=== PATIENT | male | born 1970 | race Caucasian/White ===

== ENCOUNTER 2020-07-06 20:06 | Inpatient (IN) | payer SELFPAY ==
[~2020-07-06] VITALS: Ht 172.7 cm; Wt 80.8 kg
[2020-07-06 21:04] LABS: BASO # 0.1 x10^3/uL (0.0-0.2); BASO % 1 % (0-3); EOS # 0.1 x10^3/uL (0.0-0.7); EOS % 1 % (0-3); HEMATOCRIT 41.2 % (39.0-53.0); LYMPH # 2.1 x10^3/uL (1.0-4.8); LYMPH % 13 % (24-48); MEAN CORPUSCULAR HEMOGLOBIN 30 pg (25-35); MEAN CORPUSCULAR HGB CONC 34 g/dL (31-37); MEAN CORPUSCULAR VOLUME 89 fL (79-100); MONO # 1.6 x10^3/uL (0.0-1.1); MONO % 10 % (0-9); NEUT # 11.6 x10^3/uL (1.8-7.7); NEUT % 75 % (31-73); PLATELET COUNT 243 x10^3/uL (140-400); RED BLOOD COUNT 4.62 x10^6/uL (4.30-5.70); RED CELL DISTRIBUTION WIDTH 13.6 % (11.5-14.5); WHITE BLOOD COUNT 15.5 x10^3/uL (4.0-11.0)
[2020-07-06 21:11] LABS: CALCIUM 8.7 mg/dL (8.5-10.1); CREATININE 1.1 mg/dL (0.7-1.3); GFR 71.4; POTASSIUM 3.5 mmol/L (3.5-5.1)
[2020-07-06] MEDS ORDERED: IOHEXOL 300 MG/ML 100ML VIAL. IV ONE (21:30)
[2020-07-06] MEDS ORDERED: IV NORMAL SALINE 1000ML BAG 1,000 ML IV ONE (21:30)
[2020-07-06] MEDS ORDERED: ONDANSETRON PF 4 MG/2 ML VIAL. IV ONE (21:30)
[2020-07-06] MEDS ORDERED: fentaNYL PF VIAL 100 MCG/2 ML VIAL IV ONE (21:30)
[2020-07-06] MEDS ORDERED: CONTRAST GIVEN. MC PRN (21:30)
[2020-07-06] MEDS ORDERED: PIPERACILLIN/TAZOBACTAM 3.375 GM in IV NORMAL SALINE 50ML 50 ML IV ONE (22:00)
[2020-07-06] MEDS ORDERED: MORPHINE SULFATE 4 MG/ML VIAL. IV PRN (22:00)
[2020-07-06] MEDS ORDERED: ONDANSETRON PF 4 MG/2 ML VIAL. IV PRN (22:00)
--- NOTE | 2020-07-06 22:05 | RAD ---
PQRS Compliance Statement: One or more of the following individualized dose reduction techniques were utilized for this examinat ion: 1. Automated exposure control 2. Adjustment of the mA and/or kV according to patient size 3. Use of iterative reconstruction technique CT PELVIS W Clinical Indication: Reason: left perirectal abscess / Comparison: None. Technique: Helical CT imaging of the abdomen and pelvis is performed after 75 cc of Omnipaque 300 IV contrast. Oral contrast not administered. Findings: There is posterior perineal and midline left gluteal fluid collection measuring up to 5 cm AP by 2.3 cm transverse by approximately 9.3 cm craniocaudal. There is faint rim enhancement of the collection. There is moderate induration of the surrounding subcutaneous fat. There is induration of the midline right gluteal fat. The cephalad portion of the collection is near the tip of the coccyx. No bone ero oscar is identified. No bubbles of gas are seen in the fluid collection. No perirectal fluid collectio n is identified. There are mildly enlarged bilateral inguinal lymph nodes that may be reactive. There is no dilated small bowel. The appendix is normal. No colon wall thickening is identified. The urinary bladder is normal. The prostate and seminal vesicles are normal. There is no pelvic free flui d. Degenerative endplate spurring of the lower lumbar spine. The sacroiliac joints are partially fused. IMPRESSION: 1. There is posterior perineal and midline left gluteal fluid collection suggestive of abscess. Ther e is moderate induration of the surrounding subcutaneous fat. 2. Mildly enlarged bilateral inguinal lymph nodes may be reactive. Electronically signed by: Chapito Tony MD (07/06/2020 10:03 PM) [facility]
--- NOTE | 2020-07-06 22:06 | ED.ADGEN ---
Past Medical History Past Medical History: No Pertinent History Past Surgical History: Other Additional Past Surgical Histo: NECK SURGERY 2000 Smoking Status: Current Every Day Smoker Alcohol Use: Rarely Drug Use: None General Adult EDM: Chief Complaint: SKIN RASH/ABSCESS HPI: HPI: Patient is a 49 year old male who presents emergency department with complaints of pain in his left buttock for the last 3 days accompanied by hot flashes and chills. Patient states that he has not measured his fever but he has felt hot. He denies any abdominal pain, nausea, vomiting, diarrhea, shortness of breath, cough, sore throat, headache, or rash. Patient denies any itching, drainage, or bleeding from the affected area. He currently rates the pain a 8 out of 10 on the pain scale, he denies any alleviating factors, pain is worse if any pressure is applied to his buttock. Review of Systems: Review of Systems: Complete ROS is negative unless otherwise noted in HPI. Current Medications: Current Medications Medications (Trade) Dose Ordered Sig/Cisco Start Time Stop Time Status Last Admin Dose Admin Fentanyl Citrate (Fentanyl 2ml Vial) 50 mcg 1X ONCE 07/06/20 21:30 07/06/20 21:31 DC 07/06/20 21:57 50 MCG Info (CONTRAST GIVEN -- Rx MONITORING) 1 each PRN DAILY PRN 07/06/20 21:30 07/08/20 21:29 Iohexol (Omnipaque 300 Mg/ml) 75 ml 1X ONCE 07/06/20 21:30 07/06/20 21:31 DC 07/06/20 21:31 75 ML Morphine Sulfate (Morphine Sulfate) 4 mg PRN Q2HR PRN 07/06/20 22:00 07/07/20 21:59 Ondansetron HCl (Zofran) 4 mg PRN Q8HRS PRN 07/06/20 22:00 07/07/20 21:59 Piperacillin Sod/ Tazobactam Sod 3.375 gm/Sodium Chloride 50 ml @ 100 mls/hr 1X ONCE 07/06/20 22:00 07/06/20 22:29 Sodium Chloride 1,000 ml @ 125 mls/hr Q8H 07/06/20 22:00 07/07/20 21:59 Allergies: Allergies: Allergies Coded Allergies Type Severity Reaction Last Updated Verified No Known Drug Allergies 07/06/20 No Physical Exam: PE: See Above Constitutional: Well developed, well nourished, no acute distress, non-toxic appearance., appears uncomfortable [] HENT: Normocephalic, atraumatic, bilateral external ears normal, nose normal. [] Eyes: PERRLA, EOMI, conjunctiva normal, no discharge. [] Neck: Normal range of motion, no stridor. [] Cardiovascular:Heart rate regular rhythm Lungs & Thorax: Respirations even and unlabored, no retractions, no respiratory distress Abdomen: soft, no tenderness Skin: Warm, dry; the left buttock is erythemic, warm, and indurated medially, no fluctuance, no visible abscess. Suspect perirectal abscess Extremities: No cyanosis, ROM intact, no edema. [] Neurologic: Alert and oriented X 3, normal motor, normal sensory, no focal deficits noted. [] Psychologic: Affect normal, judgement normal, mood normal. [] Current Patient Data: Labs: Laboratory Tests Test 07/06/20 20:57 White Blood Count 15.5 x10^3/uL (4.0-11.0) H Red Blood Count 4.62 x10^6/uL (4.30-5.70) Hemoglobin 14.0 g/dL (13.0-17.5) Hematocrit 41.2 % (39.0-53.0) Mean Corpuscular Volume 89 fL (79-100) Mean Corpuscular Hemoglobin 30 pg (25-35) Mean Corpuscular Hemoglobin Concent 34 g/dL (31-37) Red Cell Distribution Width 13.6 % (11.5-14.5) Platelet Count 243 x10^3/uL (140-400) Neutrophils (%) (Auto) 75 % (31-73) H Lymphocytes (%) (Auto) 13 % (24-48) L Monocytes (%) (Auto) 10 % (0-9) H Eosinophils (%) (Auto) 1 % (0-3) Basophils (%) (Auto) 1 % (0-3) Neutrophils # (Auto) 11.6 x10^3/uL (1.8-7.7) H Lymphocytes # (Auto) 2.1 x10^3/uL (1.0-4.8) Monocytes # (Auto) 1.6 x10^3/uL (0.0-1.1) H Eosinophils # (Auto) 0.1 x10^3/uL (0.0-0.7) Basophils # (Auto) 0.1 x10^3/uL (0.0-0.2) Sodium Level 141 mmol/L (136-145) Potassium Level 3.5 mmol/L (3.5-5.1) Chloride Level 104 mmol/L (98-107) Carbon Dioxide Level 27 mmol/L (21-32) Anion Gap 10 (6-14) Blood Urea Nitrogen 10 mg/dL (8-26) Creatinine 1.1 mg/dL (0.7-1.3) Estimated GFR (Cockcroft-Gault) 71.4 Glucose Level 108 mg/dL (70-99) H Calcium Level 8.7 mg/dL (8.5-10.1) Laboratory Tests 07/06/20 20:57 Laboratory Tests 07/06/20 20:57 Vital Signs: Vital Signs Date Time Temp Pulse Resp B/P (MAP) Pulse Ox O2 Delivery O2 Flow Rate FiO2 07/06/20 20:35 98.5 92 18 143/70 (94) 96 Room Air 98.5 EKG: EKG: [] Heart Score: C/O Chest Pain: No Risk Scores: Score 0 - 3: 2.5% MACE over next 6 weeks - Discharge Home Score 4 - 6: 20.3% MACE over next 6 weeks - Admit for Clinical Observation Score 7 - 10: 72.7% MACE over next 6 weeks - Early Invasive Strategies Radiology/Procedures: Radiology/Procedures: PROCEDURE: CT PELVIS W/CONTRAST PQRS Compliance Statement: One or more of the following individualized dose reduction techniques were utilized for this examination: 1. Automated exposure control 2. Adjustment of the mA and/or kV according to patient size 3. Use of iterative reconstruction technique CT PELVIS W Clinical Indication: Reason: left perirectal abscess / Comparison: None. Technique: Helical CT imaging of the abdomen and pelvis is performed after 75 cc of Omnipaque 300 IV contrast. Oral contrast not administered. Findings: There is posterior perineal and midline left gluteal fluid collection measuring up to 5 cm AP by 2.3 cm transverse by approximately 9.3 cm craniocaudal. There is faint rim enhancement of the collection. There is moderate induration of the surrounding subcutaneous fat. There is induration of the midline right gluteal fat. The cephalad portion of the collection is near the tip of the coccyx. No b one erosion is identified. No bubbles of gas are seen in the fluid collection. No perirectal fluid collection is identified. There are mildly enlarged bilateral inguinal lymph nodes that may be reactive. There is no dilated small bowel. The appendix is normal. No colon wall thickening is identified. The urinary bladder is normal. The prostate and seminal vesicles are normal. There is no pelvic free fluid. Degenerative endplate spurring of the lower lumbar spine. The sacroiliac joints are partially fused. IMPRESSION: 1. There is posterior perineal and midline left gluteal fluid collection s uggestive of abscess. There is moderate induration of the surrounding subcutaneous fat. 2. Mildly enlarged bilateral inguinal lymph nodes may be reactive. Electronically signed by: Chapito Tnoy MD (07/06/2020 10:03 PM) [facility] [] Course & Med Decision Making: Course & Med Decision Making Pertinent Labs and Imaging studies reviewed. (See chart for details) [id number]-spoke with Dr. Ibarra who is the admitting physician, and care was assumed following discussion of patient. Will admit patient for left perirectal abscess, advised that Dr. Soto has also been paged to inform the patient. Patient's vital signs stable.. Patient remains afebrile, appears nontoxic, respirations even and unlabored. Patient will be admitted to the medical/surgical floor. Patient's case and plan of care also discussed with Dr. Davey 2199- Dr. Soto notified of patient. Advised that order for NPO has already been initiated and patient has been given 3.375 g of Zosyn IV. [] Dragon Disclaimer: Dragon Disclaimer: This electronic medical record was generated, in whole or in part, using a voice recognition dictation system. Departure Departure Impression: Primary Impression: Mercedez-rectal abscess Disposition: ADMITTED INPATIENT Admitting Physician: GISELA Richey) Condition: STABLE Referrals: NO PCP (PCP) RICH GIANG [facility] July 06, 2020 22:06
[2020-07-06] MEDS ORDERED: PIP/TAZO PER PHARMACY MC PRN (22:15)
[2020-07-06] MEDS ORDERED: MORPHINE SULFATE 10 MG/ML VIAL. IV PRN (22:15)
[2020-07-06] MEDS ORDERED: MAG HYDROX/ALUMINUM HYD/SIMETH 30 ML ORAL.SUSP PO PRN (22:30)
[2020-07-06] MEDS ORDERED: ONDANSETRON PF 4 MG/2 ML VIAL. IVP PRN (22:30)
[2020-07-06] MEDS ORDERED: PROCHLORPERAZINE 10 MG/2 ML VIAL. IVP PRN (22:30)
[2020-07-06] MEDS ORDERED: ACETAMINOPHEN 325 MG TABLET. PO PRN (22:30)
[2020-07-06] MEDS ORDERED: MAGNESIUM HYDROXIDE 2,400 MG/30 ML ORAL.SUSP. PO PRN (22:30)
[2020-07-06] MEDS ORDERED: ZOLPIDEM 5 MG TABLET. PO PRN (22:30)
[2020-07-06] MEDS ORDERED: HYDROcodone/APAP 5/325MG 1 TAB TABLET PO PRN ×2 (22:30)
[2020-07-06] MEDS ORDERED: CALCIUM CARBONATE 500 MG TAB.CHEW PO PRN (22:30)
[2020-07-06 23:00] VITALS: BP 151/83
[2020-07-06] MEDS: IV NORMAL SALINE 1000ML BAG 1,000 ML IV SCH (23:11)
--- NOTE | 2020-07-07 01:21 | NUR ---
ADMIT NOTE: The patient, ISIAH ANGULO, 49 y/o, M admitted by HUBERT KEN MD, was given written information regarding hospital policies, unit procedures and contact persons. Patient orientated to unit, admit packed reviewed, and plan of care discussed. Admission wound photo complete. Patient's allergies and preferred pharmacy verified and pt reports no active home medications. Patient resting in bed, bed in lowest/locked position, and call light within reach; no other needs voiced at this time.
[2020-07-07 03:34] VITALS: BP 135/76
[2020-07-07] MEDS: HEPARIN for SUB-Q USE 5,000 UNIT/ML VIAL. SQ SCH ×2 (05:24→14:00)
[2020-07-07] MEDS: PIPERACILLIN/TAZOBACTAM 3.375 GM in IV NORMAL SALINE 50ML 50 ML IV SCH ×2 (05:24→11:51)
[2020-07-07] MEDS: IV NORMAL SALINE 1000ML BAG 1,000 ML IV SCH ×2 (05:26→14:00)
--- NOTE | 2020-07-07 05:26 | NUR ---
Heparin non-administered on eMAR d/t surgical consult and potential surgery.
[2020-07-07 06:50] LABS: BASO # 0.1 x10^3/uL (0.0-0.2); BASO % 1 % (0-3); EOS # 0.2 x10^3/uL (0.0-0.7); EOS % 1 % (0-3); HEMOGLOBIN 14.1 g/dL (13.0-17.5); LYMPH % 14 % (24-48); MEAN CORPUSCULAR HEMOGLOBIN 30 pg (25-35); MEAN CORPUSCULAR HGB CONC 34 g/dL (31-37); MEAN CORPUSCULAR VOLUME 90 fL (79-100); MONO # 1.6 x10^3/uL (0.0-1.1); MONO % 11 % (0-9); NEUT # 10.1 x10^3/uL (1.8-7.7); NEUT % 73 % (31-73); PLATELET COUNT 247 x10^3/uL (140-400); RED BLOOD COUNT 4.66 x10^6/uL (4.30-5.70); RED CELL DISTRIBUTION WIDTH 14.2 % (11.5-14.5); WHITE BLOOD COUNT 13.9 x10^3/uL (4.0-11.0)
[2020-07-07 07:00] VITALS: BP 142/82
[2020-07-07 07:11] LABS: CALCIUM 8.4 mg/dL (8.5-10.1); GFR 79.8; POTASSIUM 3.9 mmol/L (3.5-5.1)
--- NOTE | 2020-07-07 07:42 | PDOC1 ---
History and Physical Date of Admission Date of Admission DATE: 07/07/20 TIME: 07:34 Identification/Chief Complaint Chief Complaint Left buttock pain Source Source: Patient History of Present Illness History of Present Illness Mr Lazo is a 49 yo M with no significant PMHX who presents emergency department with complaints of pain in his left buttock for the last 4 days accompanied by subjective fever and chills. Has not been able to lay flat for 4 days. He denies any abdominal pain, nausea, vomiting, diarrhea, shortness of breath, cough, sore throat, headache, or rash. Patient denies any itching, drainage, or bleeding from the affected area. He currently rates the pain a 8 out of 10 on the pain scale, he denies any alleviating factors, pain is worse if any pressure is applied to his buttock. Heart rate 92 bpm Labs with WBC 15.5, Hb 14, platelets 243, NA 141, K3.5, BUN 10 CR 1.1, glucose 108. CT abdomen pelvis with left perineum posterior gluteal fluid collection consistent with abscess. General surgery was consulted started on IV Zosyn and admitted for further care Past Medical History Cardiovascular: No pertinent hx Past Surgical History Past Surgical History: Other (Neck surgery 2000) Family History Family History: High Cholestrol, Hypertension Social History Smoke: 1 pack per day ALCOHOL: rare Drugs: None Current Problem List Problem List Problems Medical Problems: (1) Mercedez-rectal abscess Status: Acute Current Medications Current Medications Current Medications Iohexol (Omnipaque 300 Mg/ml) 75 ml 1X ONCE IV Last administered on 07/06/20at 21:31; Start 07/06/20 at 21:30; Stop 07/06/20 at 21:31; Status DC Info (CONTRAST GIVEN -- Rx MONITORING) 1 each PRN DAILY PRN MC SEE COMMENTS; Start 07/06/20 at 21:30; Stop 07/08/20 at 21:29 Fentanyl Citrate (Fentanyl 2ml Vial) 50 mcg 1X ONCE IV Last administered on 07/06/20at 21:57; Start 07/06/20 at 21:30; Stop 07/06/20 at 21:31; Status DC Ondansetron HCl (Zofran) 4 mg 1X ONCE IV Last administered on 07/06/20at 21:57; Start 07/06/20 at 21:30; Stop 07/06/20 at 21:31; Status DC Sodium Chloride 1,000 ml @ 1,000 mls/hr 1X ONCE IV Last administered on 07/06/20at 21:47; Start 07/06/20 at 21:30; Stop 07/06/20 at 22:29; Status DC Piperacillin Sod/ Tazobactam Sod 3.375 gm/Sodium Chloride 50 ml @ 100 mls/hr 1X ONCE IV Last administered on 07/06/20at 22:55; Start 07/06/20 at 22:00; Stop 07/06/20 at 22:29; Status DC Ondansetron HCl (Zofran) 4 mg PRN Q8HRS PRN IV NAUSEA/VOMITING; Start 07/06/20 at 22:00; Stop 07/06/20 at 22:33; Status DC Morphine Sulfate (Morphine Sulfate) 4 mg PRN Q2HR PRN IV PAIN; Start 07/06/20 at 22:00; Stop 07/07/20 at 21:59 Sodium Chloride 1,000 ml @ 125 mls/hr Q8H IV Last administered on 07/07/20at 05:26; Start 07/06/20 at 22:00; Stop 07/07/20 at 21:59 Piperacillin Sod/ Tazobactam Sod (Zosyn Per Pharmacy) 1 each PRN DAILY PRN MC SEE COMMENTS; Start 07/06/20 at 22:15 Piperacillin Sod/ Tazobactam Sod 3.375 gm/Sodium Chloride 50 ml @ 100 mls/hr Q6HRS IV Last administered on 07/07/20at 05:24; Start 07/07/20 at 05:00 Morphine Sulfate (Morphine Sulfate) 5 mg PRN Q2HR PRN IV PAIN; Start 07/06/20 at 22:15 Ondansetron HCl (Zofran) 4 mg PRN Q6HRS PRN IVP NAUSEA/VOMITING 1ST CHOICE; Start 07/06/20 at 22:30 Prochlorperazine Edisylate (Compazine) 10 mg PRN Q6HRS PRN IVP NAUSEA/VOMITING 2ND CHOICE; Start 07/06/20 at 22:30 Al Hydroxide/Mg Hydroxide (Mylanta Plus Xs) 30 ml PRN Q3HRS PRN PO HEARTBURN / GAS; Start 07/06/20 at 22:30 Calcium Carbonate/ Glycine (Tums) 500 mg PRN Q3HRS PRN PO UPSET STOMACH; Start 07/06/20 at 22:30 Zolpidem Tartrate (Ambien) 5 mg PRN QHS PRN PO INSOMNIA, MAY REPEAT IN 1HR; Start 07/06/20 at 22:30 Acetaminophen/ Hydrocodone Bitart (Lortab 5/325) 1 tab PRN Q4HRS PRN PO MILD PAIN 1-3; Start 07/06/20 at 22:30 Acetaminophen/ Hydrocodone Bitart (Lortab 5/325) 2 tab PRN Q4HRS PRN PO MODERATE PAIN, SEVERE PAIN Last administered on 07/06/20at 23:35; Start 07/06/20 at 22:30 Acetaminophen (Tylenol) 650 mg PRN Q6HRS PRN PO Headaches, Temp > 101.5F; Start 07/06/20 at 22:30 Magnesium Hydroxide (Milk Of Magnesia) 2,400 mg PRN Q12HR PRN PO CONSTIPATION; Start 07/06/20 at 22:30 Heparin Sodium (Porcine) (Heparin Sodium) 5,000 unit Q8HRS SQ ; Start 07/07/20 at 06:00 Allergies Allergies: Coded Allergies: No Known Drug Allergies (Unverified , 07/06/20) Physical Exam General: Alert, Oriented X3, Cooperative, mild distress HEENT: Atraumatic, PERRLA, EOMI, Mucous membr. moist/pink Lungs: Clear to auscultation, Normal air movement Heart: S1S2, RRR, no thrills, no rubs, no gallops, no murmurs Abdomen: Normal bowel sounds, Soft, No tenderness, No hepatosplenomegaly, No masses Extremities: No clubbing, No cyanosis, No edema, Normal pulses, No tenderness/s welling Skin: No rashes, No breakdown, No significant lesion Neuro: Normal gait, Normal speech, Strength at 5/5 X4 ext, Normal tone, Sensation intact, Cranial nerves 3-12 NL, Reflexes 2+ Psych/Mental Status: Mental status NL, Mood NL Vitals Vitals Vital Signs Date Time Temp Pulse Resp B/P (MAP) Pulse Ox O2 Delivery O2 Flow Rate FiO2 07/07/20 03:34 98.4 70 18 135/76 (95) 96 Room Air 98.4 Labs Labs Laboratory Tests Test 07/06/20 20:57 07/07/20 05:30 07/07/20 05:50 White Blood Count 15.5 x10^3/uL (4.0-11.0) 13.9 x10^3/uL (4.0-11.0) Red Blood Count 4.62 x10^6/uL (4.30-5.70) 4.66 x10^6/uL (4.30-5.70) Hemoglobin 14.0 g/dL (13.0-17.5) 14.1 g/dL (13.0-17.5) Hematocrit 41.2 % (39.0-53.0) 42.0 % (39.0-53.0) Mean Corpuscular Volume 89 fL (79-100) 90 fL (79-100) Mean Corpuscular Hemoglobin 30 pg (25-35) 30 pg (25-35) Mean Corpuscular Hemoglobin Concent 34 g/dL (31-37) 34 g/dL (31-37) Red Cell Distribution Width 13.6 % (11.5-14.5) 14.2 % (11.5-14.5) Platelet Count 243 x10^3/uL (140-400) 247 x10^3/uL (140-400) Neutrophils (%) (Auto) 75 % (31-73) 73 % (31-73) Lymphocytes (%) (Auto) 13 % (24-48) 14 % (24-48) Monocytes (%) (Auto) 10 % (0-9) 11 % (0-9) Eosinophils (%) (Auto) 1 % (0-3) 1 % (0-3) Basophils (%) (Auto) 1 % (0-3) 1 % (0-3) Neutrophils # (Auto) 11.6 x10^3/uL (1.8-7.7) 10.1 x10^3/uL (1.8-7.7) Lymphocytes # (Auto) 2.1 x10^3/uL (1.0-4.8) 2.0 x10^3/uL (1.0-4.8) Monocytes # (Auto) 1.6 x10^3/uL (0.0-1.1) 1.6 x10^3/uL (0.0-1.1) Eosinophils # (Auto) 0.1 x10^3/uL (0.0-0.7) 0.2 x10^3/uL (0.0-0.7) Basophils # (Auto) 0.1 x10^3/uL (0.0-0.2) 0.1 x10^3/uL (0.0-0.2) Sodium Level 141 mmol/L (136-145) 143 mmol/L (136-145) Potassium Level 3.5 mmol/L (3.5-5.1) 3.9 mmol/L (3.5-5.1) Chloride Level 104 mmol/L (98-107) 107 mmol/L (98-107) Carbon Dioxide Level 27 mmol/L (21-32) 28 mmol/L (21-32) Anion Gap 10 (6-14) 8 (6-14) Blood Urea Nitrogen 10 mg/dL (8-26) 9 mg/dL (8-26) Creatinine 1.1 mg/dL (0.7-1.3) 1.0 mg/dL (0.7-1.3) Estimated GFR (Cockcroft-Gault) 71.4 79.8 Glucose Level 108 mg/dL (70-99) 88 mg/dL (70-99) Calcium Level 8.7 mg/dL (8.5-10.1) 8.4 mg/dL (8.5-10.1) Laboratory Tests Test 07/06/20 20:57 07/07/20 05:30 07/07/20 05:50 White Blood Count 15.5 x10^3/uL (4.0-11.0) 13.9 x10^3/uL (4.0-11.0) Red Blood Count 4.62 x10^6/uL (4.30-5.70) 4.66 x10^6/uL (4.30-5.70) Hemoglobin 14.0 g/dL (13.0-17.5) 14.1 g/dL (13.0-17.5) Hematocrit 41.2 % (39.0-53.0) 42.0 % (39.0-53.0) Mean Corpuscular Volume 89 fL (79-100) 90 fL (79-100) Mean Corpuscular Hemoglobin 30 pg (25-35) 30 pg (25-35) Mean Corpuscular Hemoglobin Concent 34 g/dL (31-37) 34 g/dL (31-37) Red Cell Distribution Width 13.6 % (11.5-14.5) 14.2 % (11.5-14.5) Platelet Count 243 x10^3/uL (140-400) 247 x10^3/uL (140-400) Neutrophils (%) (Auto) 75 % (31-73) 73 % (31-73) Lymphocytes (%) (Auto) 13 % (24-48) 14 % (24-48) Monocytes (%) (Auto) 10 % (0-9) 11 % (0-9) Eosinophils (%) (Auto) 1 % (0-3) 1 % (0-3) Basophils (%) (Auto) 1 % (0-3) 1 % (0-3) Neutrophils # (Auto) 11.6 x10^3/uL (1.8-7.7) 10.1 x10^3/uL (1.8-7.7) Lymphocytes # (Auto) 2.1 x10^3/uL (1.0-4.8) 2.0 x10^3/uL (1.0-4.8) Monocytes # (Auto) 1.6 x10^3/uL (0.0-1.1) 1.6 x10^3/uL (0.0-1.1) Eosinophils # (Auto) 0.1 x10^3/uL (0.0-0.7) 0.2 x10^3/uL (0.0-0.7) Basophils # (Auto) 0.1 x10^3/uL (0.0-0.2) 0.1 x10^3/uL (0.0-0.2) Sodium Level 141 mmol/L (136-145) 143 mmol/L (136-145) Potassium Level 3.5 mmol/L (3.5-5.1) 3.9 mmol/L (3.5-5.1) Chloride Level 104 mmol/L (98-107) 107 mmol/L (98-107) Carbon Dioxide Level 27 mmol/L (21-32) 28 mmol/L (21-32) Anion Gap 10 (6-14) 8 (6-14) Blood Urea Nitrogen 10 mg/dL (8-26) 9 mg/dL (8-26) Creatinine 1.1 mg/dL (0.7-1.3) 1.0 mg/dL (0.7-1.3) Estimated GFR (Cockcroft-Gault) 71.4 79.8 Glucose Level 108 mg/dL (70-99) 88 mg/dL (70-99) Calcium Level 8.7 mg/dL (8.5-10.1) 8.4 mg/dL (8.5-10.1) Images Images There is posterior perineal and midline left gluteal fluid collection measuring up to 5 cm AP by 2.3 cm transverse by approximately 9.3 cm craniocaudal. There is faint rim enhancement of the collection. There is moderate induration of the surrounding subcutaneous fat. There is induration of the midline right gluteal fat. The cephalad portion of the collection is near the tip of the coccyx. No bone erosion is identified. No bubbles of gas are seen in the fluid collection. No perirectal fluid collection is identified. There are mildly enlarged bilateral inguinal lymph nodes that may be reactive. There is no dilated small bowel. The appendix is normal. No colon wall thickening is identified. The urinary bladder is normal. The prostate and seminal vesicles are normal. There is no pelvic free fluid. Degenerative endplate spurring of the lower lumbar spine. The sacroiliac joints are partially fused. IMPRESSION: 1. There is posterior perineal and midline left gluteal fluid collection suggestive of abscess. There is moderate induration of the surrounding subcutaneous fat. 2. Mildly enlarged bilateral inguinal lymph nodes may be reactive. VTE Prophylaxis Ordered VTE Prophylaxis Devices: No VTE Pharmacological Prophylaxi: Yes Assessment/Plan Assessment/Plan A/P: Left perirectal abscess - on IV zosyn. NPO, general surgery consulted FEN - NPO PPX - SCDs FULL CODE Dispo - To OR, possible d/c after Justifications for Admission Other Justification HAZEL MATIAS MD July 07, 2020 07:42
[2020-07-07] MEDS ORDERED: fentaNYL PF VIAL 100 MCG/2 ML VIAL IVP PRN ×2 (07:45)
[2020-07-07] MEDS ORDERED: IV RINGERS,LACTATED 1000ML 1,000 ML IV SCH (07:45)
[2020-07-07] MEDS ORDERED: MORPHINE SULFATE 2 MG/ML VIAL. IVP PRN (07:45)
[2020-07-07] MEDS ORDERED: PROCHLORPERAZINE 10 MG/2 ML VIAL. IVP PRN (07:45)
[2020-07-07] MEDS ORDERED: HYDROmorphone 2 MG/ML VIAL IVP PRN (07:45)
--- NOTE | 2020-07-07 08:24 | PDOC2 ---
ROGER MALDONADO [employer]READ[employer] M[employer]INE [employer]EDER 07/07/20 0824: CONSULT Date of Consult Date of Consult DATE: 07/07/20 TIME: 08:20 Reason for Consult Reason for Consult: perirectal abscess Referring Physician Referring Physician: ER Identification/Chief Complaint Chief Complaint rectal pain Source Source: Chart review, Patient History of Present Illness Reason for Visit: 3-4 days of rectal pain, swelling. No drainage, has had skin infections previously that have required lancing and abx. Pain is slightly improved Past Medical History Past Medical History denies PMH Past Surgical History Past Surgical History: Other (Neck surgery 2000) Family History Family History: Other (noncontributory to current illness ) Social History 1 pack per day ALCOHOL: rare Drugs: None Lives: Alone Current Problem List Problem List Problems Medical Problems: (1) Mercedez-rectal abscess Status: Acute Current Medications Current Medications Current Medications Iohexol (Omnipaque 300 Mg/ml) 75 ml 1X ONCE IV Last administered on 07/06/20at 21:31; Start 07/06/20 at 21:30; Stop 07/06/20 at 21:31; Status DC Info (CONTRAST GIVEN -- Rx MONITORING) 1 each PRN DAILY PRN MC SEE COMMENTS; Start 07/06/20 at 21:30; Stop 07/08/20 at 21:29 Fentanyl Citrate (Fentanyl 2ml Vial) 50 mcg 1X ONCE IV Last administered on 07/06/20at 21:57; Start 07/06/20 at 21:30; Stop 07/06/20 at 21:31; Status DC Ondansetron HCl (Zofran) 4 mg 1X ONCE IV Last administered on 07/06/20at 21:57; Start 07/06/20 at 21:30; Stop 07/06/20 at 21:31; Status DC Sodium Chloride 1,000 ml @ 1,000 mls/hr 1X ONCE IV Last administered on 07/06/20at 21:47; Start 07/06/20 at 21:30; Stop 07/06/20 at 22:29; Status DC Piperacillin Sod/ Tazobactam Sod 3.375 gm/Sodium Chloride 50 ml @ 100 mls/hr 1X ONCE IV Last administered on 07/06/20at 22:55; Start 07/06/20 at 22:00; Stop 07/06/20 at 22:29; Status DC Ondansetron HCl (Zofran) 4 mg PRN Q8HRS PRN IV NAUSEA/VOMITING; Start 07/06/20 at 22:00; Stop 07/06/20 at 22:33; Status DC Morphine Sulfate (Morphine Sulfate) 4 mg PRN Q2HR PRN IV PAIN; Start 07/06/20 at 22:00; Stop 07/07/20 at 21:59 Sodium Chloride 1,000 ml @ 125 mls/hr Q8H IV Last administered on 07/07/20at 05:26; Start 07/06/20 at 22:00; Stop 07/07/20 at 21:59 Piperacillin Sod/ Tazobactam Sod (Zosyn Per Pharmacy) 1 each PRN DAILY PRN MC SEE COMMENTS; Start 07/06/20 at 22:15 Piperacillin Sod/ Tazobactam Sod 3.375 gm/Sodium Chloride 50 ml @ 100 mls/hr Q6HRS IV Last administered on 07/07/20at 05:24; Start 07/07/20 at 05:00 Morphine Sulfate (Morphine Sulfate) 5 mg PRN Q2HR PRN IV PAIN; Start 07/06/20 at 22:15 Ondansetron HCl (Zofran) 4 mg PRN Q6HRS PRN IVP NAUSEA/VOMITING 1ST CHOICE; Start 07/06/20 at 22:30 Prochlorperazine Edisylate (Compazine) 10 mg PRN Q6HRS PRN IVP NAUSEA/VOMITING 2ND CHOICE; Start 07/06/20 at 22:30 Al Hydroxide/Mg Hydroxide (Mylanta Plus Xs) 30 ml PRN Q3HRS PRN PO HEARTBURN / GAS; Start 07/06/20 at 22:30 Calcium Carbonate/ Glycine (Tums) 500 mg PRN Q3HRS PRN PO UPSET STOMACH; Start 07/06/20 at 22:30 Zolpidem Tartrate (Ambien) 5 mg PRN QHS PRN PO INSOMNIA, MAY REPEAT IN 1HR; Start 07/06/20 at 22:30 Acetaminophen/ Hydrocodone Bitart (Lortab 5/325) 1 tab PRN Q4HRS PRN PO MILD PAIN 1-3; Start 07/06/20 at 22:30 Acetaminophen/ Hydrocodone Bitart (Lortab 5/325) 2 tab PRN Q4HRS PRN PO MODERAT E PAIN, SEVERE PAIN Last administered on 07/06/20at 23:35; Start 07/06/20 at 22:30 Acetaminophen (Tylenol) 650 mg PRN Q6HRS PRN PO Headaches, Temp > 101.5F; Start 07/06/20 at 22:30 Magnesium Hydroxide (Milk Of Magnesia) 2,400 mg PRN Q12HR PRN PO CONSTIPATION; Start 07/06/20 at 22:30 Heparin Sodium (Porcine) (Heparin Sodium) 5,000 unit Q8HRS SQ ; Start 07/07/20 at 06:00 Fentanyl Citrate (Fentanyl 2ml Vial) 25 mcg PRN Q5MIN PRN IVP MILD PAIN 1-3; Start 07/07/20 at 07:45; Stop 07/08/20 at 07:44 Fentanyl Citrate (Fentanyl 2ml Vial) 50 mcg PRN Q5MIN PRN IVP MODERATE PAIN 4- 6; Start 07/07/20 at 07:45; Stop 07/08/20 at 07:44 Morphine Sulfate (Morphine Sulfate) 1 mg PRN Q10MIN PRN IVP SEVERE PAIN 7-10; Start 07/07/20 at 07:45; Stop 07/08/20 at 07:44 Ringer's Solution 1,000 ml @ 30 mls/hr Q24H IV ; Start 07/07/20 at 07:45; Stop 07/07/20 at 19:44 Hydromorphone HCl (Dilaudid) 0.5 mg PRN Q10MIN PRN IVP SEVERE PAIN 7-10, 2nd CHOICE; Start 07/07/20 at 07:45; Stop 07/08/20 at 07:44 Prochlorperazine Edisylate (Compazine) 5 mg PACU PRN PRN IVP NAUSEA, MRX1; Start 07/07/20 at 07:45; Stop 07/08/20 at 07:44 Allergies Allergies: Coded Allergies: No Known Drug Allergies (Unverified , 07/06/20) ROS General: No: Chills, Other (fevers ) PSYCHOLOGICAL ROS: No: Anxiety, Depression Eyes: No Blurry vision, No Double vision HEENT: No: Heacaches, Sore Throat Hematological and Lymphatic: No: Bleeding Problems, Blood Clots Respiratory: No: Cough, Shortness of breath Cardiovascular: No Chest Pain, No Palpitations Gastrointestinal: No Nausea, No Vomiting, No Abdominal Pain Genitourinary: No Dysuria, No Hematuria Musculoskeletal: No Joint Pain, No Muscle Pain Neurological: No Impaired Coord/balance, No Numbness/Tingling Skin: No Other (see hpi) Physical Exam General: Alert, Oriented X3, Cooperative HEENT: Atraumatic, PERRLA Lungs: Clear to auscultation Heart: Regular rate, Normal S1, Normal S2 Abdomen: Soft, No tenderness, No hepatosplenomegaly Extremities: No clubbing, No cyanosis Skin: Other (perirectal area with induration erythema, tenderness to touch ) Neuro: Normal gait, Normal speech Psych/Mental Status: Mental status NL, Mood NL MUSCULOSKELETAL: No deformity, No swelling Vitals VITALS Vital Signs Date Time Temp Pulse Resp B/P (MAP) Pulse Ox O2 Delivery O2 Flow Rate FiO2 07/07/20 03:34 98.4 70 18 135/76 (95) 96 Room Air 98.4 Labs Labs Laboratory Tests Test 07/06/20 20:57 07/07/20 05:30 07/07/20 05:50 White Blood Count 15.5 x10^3/uL (4.0-11.0) 13.9 x10^3/uL (4.0-11.0) Red Blood Count 4.62 x10^6/uL (4.30-5.70) 4.66 x10^6/uL (4.30-5.70) Hemoglobin 14.0 g/dL (13.0-17.5) 14.1 g/dL (13.0-17.5) Hematocrit 41.2 % (39.0-53.0) 42.0 % (39.0-53.0) Mean Corpuscular Volume 89 fL (79-100) 90 fL (79-100) Mean Corpuscular Hemoglobin 30 pg (25-35) 30 pg (25-35) Mean Corpuscular Hemoglobin Concent 34 g/dL (31-37) 34 g/dL (31-37) Red Cell Distribution Width 13.6 % (11.5-14.5) 14.2 % (11.5-14.5) Platelet Count 243 x10^3/uL (140-400) 247 x10^3/uL (140-400) Neutrophils (%) (Auto) 75 % (31-73) 73 % (31-73) Lymphocytes (%) (Auto) 13 % (24-48) 14 % (24-48) Monocytes (%) (Auto) 10 % (0-9) 11 % (0-9) Eosinophils (%) (Auto) 1 % (0-3) 1 % (0-3) Basophils (%) (Auto) 1 % (0-3) 1 % (0-3) Neutrophils # (Auto) 11.6 x10^3/uL (1.8-7.7) 10.1 x10^3/uL (1.8-7.7) Lymphocytes # (Auto) 2.1 x10^3/uL (1.0-4.8) 2.0 x10^3/uL (1.0-4.8) Monocytes # (Auto) 1.6 x10^3/uL (0.0-1.1) 1.6 x10^3/uL (0.0-1.1) Eosinophils # (Auto) 0.1 x10^3/uL (0.0-0.7) 0.2 x10^3/uL (0.0-0.7) Basophils # (Auto) 0.1 x10^3/uL (0.0-0.2) 0.1 x10^3/uL (0.0-0.2) Sodium Level 141 mmol/L (136-145) 143 mmol/L (136-145) Potassium Level 3.5 mmol/L (3.5-5.1) 3.9 mmol/L (3.5-5.1) Chloride Level 104 mmol/L (98-107) 107 mmol/L (98-107) Carbon Dioxide Level 27 mmol/L (21-32) 28 mmol/L (21-32) Anion Gap 10 (6-14) 8 (6-14) Blood Urea Nitrogen 10 mg/dL (8-26) 9 mg/dL (8-26) Creatinine 1.1 mg/dL (0.7-1.3) 1.0 mg/dL (0.7-1.3) Estimated GFR (Cockcroft-Gault) 71.4 79.8 Glucose Level 108 mg/dL (70-99) 88 mg/dL (70-99) Calcium Level 8.7 mg/dL (8.5-10.1) 8.4 mg/dL (8.5-10.1) Laboratory Tests Test 07/06/20 20:57 07/07/20 05:30 07/07/20 05:50 White Blood Count 15.5 x10^3/uL (4.0-11.0) 13.9 x10^3/uL (4.0-11.0) Red Blood Count 4.62 x10^6/uL (4.30-5.70) 4.66 x10^6/uL (4.30-5.70) Hemoglobin 14.0 g/dL (13.0-17.5) 14.1 g/dL (13.0-17.5) Hematocrit 41.2 % (39.0-53.0) 42.0 % (39.0-53.0) Mean Corpuscular Volume 89 fL (79-100) 90 fL (79-100) Mean Corpuscular Hemoglobin 30 pg (25-35) 30 pg (25-35) Mean Corpuscular Hemoglobin Concent 34 g/dL (31-37) 34 g/dL (31-37) Red Cell Distribution Width 13.6 % (11.5-14.5) 14.2 % (11.5-14.5) Platelet Count 243 x10^3/uL (140-400) 247 x10^3/uL (140-400) Neutrophils (%) (Auto) 75 % (31-73) 73 % (31-73) Lymphocytes (%) (Auto) 13 % (24-48) 14 % (24-48) Monocytes (%) (Auto) 10 % (0-9) 11 % (0-9) Eosinophils (%) (Auto) 1 % (0-3) 1 % (0-3) Basophils (%) (Auto) 1 % (0-3) 1 % (0-3) Neutrophils # (Auto) 11.6 x10^3/uL (1.8-7.7) 10.1 x10^3/uL (1.8-7.7) Lymphocytes # (Auto) 2.1 x10^3/uL (1.0-4.8) 2.0 x10^3/uL (1.0-4.8) Monocytes # (Auto) 1.6 x10^3/uL (0.0-1.1) 1.6 x10^3/uL (0.0-1.1) Eosinophils # (Auto) 0.1 x10^3/uL (0.0-0.7) 0.2 x10^3/uL (0.0-0.7) Basophils # (Auto) 0.1 x10^3/uL (0.0-0.2) 0.1 x10^3/uL (0.0-0.2) Sodium Level 141 mmol/L (136-145) 143 mmol/L (136-145) Potassium Level 3.5 mmol/L (3.5-5.1) 3.9 mmol/L (3.5-5.1) Chloride Level 104 mmol/L (98-107) 107 mmol/L (98-107) Carbon Dioxide Level 27 mmol/L (21-32) 28 mmol/L (21-32) Anion Gap 10 (6-14) 8 (6-14) Blood Urea Nitrogen 10 mg/dL (8-26) 9 mg/dL (8-26) Creatinine 1.1 mg/dL (0.7-1.3) 1.0 mg/dL (0.7-1.3) Estimated GFR (Cockcroft-Gault) 71.4 79.8 Glucose Level 108 mg/dL (70-99) 88 mg/dL (70-99) Calcium Level 8.7 mg/dL (8.5-10.1) 8.4 mg/dL (8.5-10.1) Assessment/Plan Assessment/Plan perirectal abscess plan I&D today SHALA GARRETT MD 07/07/20 1235: CONSULT Assessment/Plan Assessment/Plan Patient seen and examined by me. Painful swollen area left perirectum tender to palpation erythematous fluctuant consistent with perirectal abscess plan for incision and drainage today. Agree with [place] assessment plan ROGER MALDONADO APRN July 07, 2020 08:24 SHALA GARRETT MD July 07, 2020 12:35
[2020-07-07] MEDS ORDERED: BUPIVACAINE-EPI 0.5% 30 ML VIAL KIT. ONE (08:48)
[2020-07-07] MEDS ORDERED: LIDOCAINE 2% PF 5 ML VIAL. ONE (09:29)
[2020-07-07] MEDS ORDERED: PROPOFOL 10 MG/ML (20ML) VIAL. IV ONE ×2 (09:29→12:16)
[2020-07-07] MEDS ORDERED: fentaNYL PF VIAL 100 MCG/2 ML VIAL ONE ×3 (09:29→12:43)
--- NOTE | 2020-07-07 09:42 | NUR ---
SW following. Discussed with RN, pt from home, room air, NPO. Surgery planning an I&D today. Wound care consulted. Med Assist following for self pay status. SW will continue to follow.
[2020-07-07] MEDS ORDERED: SEVOFLURANE 31 TO 60 MINUTES. IH ONE (12:16)
[2020-07-07] MEDS ORDERED: ONDANSETRON PF 4 MG/2 ML VIAL. ONE (12:22)
--- NOTE | 2020-07-07 12:38 | PDOC4 ---
Operative Note Operative Note Date: July 07, 2020 at 1236 Preoperative diagnosis: Perirectal abscess left side Postoperative diagnosis: Same Procedure: Incision and drainage of perirectal abscess Surgeon: Charles Dictation: Patient is 49-year-old male was mated to the hospital with perirectal pain and swelling CT scan shows left perirectal abscess. Procedure of incision and drainage was explained to the patient detail risk-benefit were also discussed including bleeding infection alternatives to this procedure also discussed with patient who seemed to understand and gave both verbal and written consent to have the procedure performed. Patient was taken to the operating room placed in supine position general anesthesia was initiated once patient was sleeping intubated his perineum was prepped and draped usual sterile fashion using ChloraPrep as he was placed in lithotomy positioning. Area around the perirectal abscess was injected with quarter percent Marcaine with epinephrine a n incision was made with a 10 blade scalpel purulent material was expressed this was cultured and then suction from the wound the wound was then irrigated with copious amounts normal saline. The wound was then packed with half-inch iodoform new gauze dressed with ABD pad and briefs. Patient was placed in supine positioning awakened and extubated operating room taken to recovery in stable condition all sponge instrument needle counts listed as correct estimated blood loss 10 mL SHALA GARRETT MD July 07, 2020 12:37
[2020-07-07] MEDS ORDERED: oxyCODONE/APAP 5/325 1 TAB TABLET PO PRN ×2 (12:45)
[2020-07-07 13:14] VITALS: BP 124/74
[2020-07-07] MEDS ORDERED: DOXY100C14 PO (14:37)
[2020-07-07] MEDS ORDERED: AMOX1TAB61 PO (14:37)
--- NOTE | 2020-07-07 15:06 | PDOC3 ---
Discharge Summary Visit Information Date of Admission: July 06, 2020 Date of Discharge: July 07, 2020 Admitting Diagnosis: Mercedez-rectal abscess Final Diagnosis Problems Medical Problems: (1) Mercedez-rectal abscess Status: Acute Brief Hospital Course Allergies Allergies Coded Allergies Type Severity Reaction Last Updated Verified No Known Drug Allergies 07/06/20 No Vital Signs Vital Signs Date Time Temp Pulse Resp B/P (MAP) Pulse Ox O2 Delivery O2 Flow Rate FiO2 07/07/20 13:14 98.8 83 15 124/74 95 Room Air 98.8 Simple Mask 07/07/20 12:44 10 Lab Results Laboratory Tests Test 07/06/20 20:57 07/07/20 05:30 07/07/20 05:35 07/07/20 05:50 White Blood Count 15.5 x10^3/uL (4.0-11.0) 13.9 x10^3/uL (4.0-11.0) Red Blood Count 4.62 x10^6/uL (4.30-5.70) 4.66 x10^6/uL (4.30-5.70) Hemoglobin 14.0 g/dL (13.0-17.5) 14.1 g/dL (13.0-17.5) Hematocrit 41.2 % (39.0-53.0) 42.0 % (39.0-53.0) Mean Corpuscular Volume 89 fL (79-100) 90 fL (79-100) Mean Corpuscular Hemoglobin 30 pg (25-35) 30 pg (25-35) Mean Corpuscular Hemoglobin Concent 34 g/dL (31-37) 34 g/dL (31-37) Red Cell Distribution Width 13.6 % (11.5-14.5) 14.2 % (11.5-14.5) Platelet Count 243 x10^3/uL (140-400) 247 x10^3/uL (140-400) Neutrophils (%) (Auto) 75 % (31-73) 73 % (31-73) Lymphocytes (%) (Auto) 13 % (24-48) 14 % (24-48) Monocytes (%) (Auto) 10 % (0-9) 11 % (0-9) Eosinophils (%) (Auto) 1 % (0-3) 1 % (0-3) Basophils (%) (Auto) 1 % (0-3) 1 % (0-3) Neutrophils # (Auto) 11.6 x10^3/uL (1.8-7.7) 10.1 x10^3/uL (1.8-7.7) Lymphocytes # (Auto) 2.1 x10^3/uL (1.0-4.8) 2.0 x10^3/uL (1.0-4.8) Monocytes # (Auto) 1.6 x10^3/uL (0.0-1.1) 1.6 x10^3/uL (0.0-1.1) Eosinophils # (Auto) 0.1 x10^3/uL (0.0-0.7) 0.2 x10^3/uL (0.0-0.7) Basophils # (Auto) 0.1 x10^3/uL (0.0-0.2) 0.1 x10^3/uL (0.0-0.2) Sodium Level 141 mmol/L (136-145) 143 mmol/L (136-145) Potassium Level 3.5 mmol/L (3.5-5.1) 3.9 mmol/L (3.5-5.1) Chloride Level 104 mmol/L (98-107) 107 mmol/L (98-107) Carbon Dioxide Level 27 mmol/L (21-32) 28 mmol/L (21-32) Anion Gap 10 (6-14) 8 (6-14) Blood Urea Nitrogen 10 mg/dL (8-26) 9 mg/dL (8-26) Creatinine 1.1 mg/dL (0.7-1.3) 1.0 mg/dL (0.7-1.3) Estimated GFR (Cockcroft-Gault) 71.4 79.8 Glucose Level 108 mg/dL (70-99) 88 mg/dL (70-99) Calcium Level 8.7 mg/dL (8.5-10.1) 8.4 mg/dL (8.5-10.1) SARS-CoV-2 RNA (REGINO) Negative (Negative) Test 07/07/20 09:15 SARS-CoV-2 Antigen (Rapid) Negative (NEGATIVE) Laboratory Tests Test 07/06/20 20:57 07/07/20 05:30 07/07/20 05:35 07/07/20 05:50 White Blood Count 15.5 x10^3/uL (4.0-11.0) 13.9 x10^3/uL (4.0-11.0) Red Blood Count 4.62 x10^6/uL (4.30-5.70) 4.66 x10^6/uL (4.30-5.70) Hemoglobin 14.0 g/dL (13.0-17.5) 14.1 g/dL (13.0-17.5) Hematocrit 41.2 % (39.0-53.0) 42.0 % (39.0-53.0) Mean Corpuscular Volume 89 fL (79-100) 90 fL (79-100) Mean Corpuscular Hemoglobin 30 pg (25-35) 30 pg (25-35) Mean Corpuscular Hemoglobin Concent 34 g/dL (31-37) 34 g/dL (31-37) Red Cell Distribution Width 13.6 % (11.5-14.5) 14.2 % (11.5-14.5) Platelet Count 243 x10^3/uL (140-400) 247 x10^3/uL (140-400) Neutrophils (%) (Auto) 75 % (31-73) 73 % (31-73) Lymphocytes (%) (Auto) 13 % (24-48) 14 % (24-48) Monocytes (%) (Auto) 10 % (0-9) 11 % (0-9) Eosinophils (%) (Auto) 1 % (0-3) 1 % (0-3) Basophils (%) (Auto) 1 % (0-3) 1 % (0-3) Neutrophils # (Auto) 11.6 x10^3/uL (1.8-7.7) 10.1 x10^3/uL (1.8-7.7) Lymphocytes # (Auto) 2.1 x10^3/uL (1.0-4.8) 2.0 x10^3/uL (1.0-4.8) Monocytes # (Auto) 1.6 x10^3/uL (0.0-1.1) 1.6 x10^3/uL (0.0-1.1) Eosinophils # (Auto) 0.1 x10^3/uL (0.0-0.7) 0.2 x10^3/uL (0.0-0.7) Basophils # (Auto) 0.1 x10^3/uL (0.0-0.2) 0.1 x10^3/uL (0.0-0.2) Sodium Level 141 mmol/L (136-145) 143 mmol/L (136-145) Potassium Level 3.5 mmol/L (3.5-5.1) 3.9 mmol/L (3.5-5.1) Chloride Level 104 mmol/L (98-107) 107 mmol/L (98-107) Carbon Dioxide Level 27 mmol/L (21-32) 28 mmol/L (21-32) Anion Gap 10 (6-14) 8 (6-14) Blood Urea Nitrogen 10 mg/dL (8-26) 9 mg/dL (8-26) Creatinine 1.1 mg/dL (0.7-1.3) 1.0 mg/dL (0.7-1.3) Estimated GFR (Cockcroft-Gault) 71.4 79.8 Glucose Level 108 mg/dL (70-99) 88 mg/dL (70-99) Calcium Level 8.7 mg/dL (8.5-10.1) 8.4 mg/dL (8.5-10.1) SARS-CoV-2 RNA (REGINO) Negative (Negative) Test 07/07/20 09:15 SARS-CoV-2 Antigen (Rapid) Negative (NEGATIVE) Brief Hospital Course Mr Lazo is a 49 yo M with no significant PMHX who presents emergency department with complaints of pain in his left buttock for the last 4 days accompanied by subjective fever and chills. Has not been able to lay flat for 4 days. He denies any abdominal pain, nausea, vomiting, diarrhea, shortness of breath, cough, sore throat, headache, or rash. Patient denies any itching, drainage, or bleeding from the affected area. He currently rates the pain a 8 out of 10 on the pain scale, he denies any alleviating factors, pain is worse if any pressure is applied to his buttock. Heart rate 92 bpm Labs with WBC 15.5, Hb 14, platelets 243, NA 141, K3.5, BUN 10 CR 1.1, glucose 108. CT abdomen pelvis with left perineum posterior gluteal fluid collection consistent with abscess. General surgery was consulted started on IV Zosyn and admitted for further care General surgery consulted To OR 07/07 for I&D with immediate relief. After return from OR he insisted on going home. Given strict return instructions, wound dressing change education and sterile wound care supplies. F/u with general surgery 1 week. Problem list: Left perirectal abscess - Augmentin and doxy on d/c, will f/u culture Greater than 30 minutes spent on d/c Discharge Information Condition at Discharge: Improved Follow Up: Weeks Disposition/Orders: D/C to Home Scheduled Amoxicillin/Potassium Clav (Augmentin 875-125 Tablet) 1 Each Tablet, 1 TAB PO BID for Abscess for 10 Days, #20 Ref 0 Prescribed by: HAZEL MATIAS MD on 07/07/20 1437 Doxycycline Monohydrate (Doxycycline Monohydrate) 100 Mg Capsule, 1 CAP PO BID for Abscess for 10 Days, #20 Prescribed by: HAZEL MATIAS MD on 07/07/20 1437 Justicifation of Admission Dx: Justifications for Admission: Justification of Admission Dx: Yes HAZEL MATIAS MD July 07, 2020 15:06
--- NOTE | 2020-07-07 15:47 | NUR ---
Pt discharged home with self care. Discharge instructions and prescriptions discussed. Provided supplies for wound change. IV removed. Pt ambulated to ED entrance.
[2020-07-07] MEDS ORDERED: LACTOBACILLUS RHAMNOSUS GG 1 CAPSULE. PO SCH (21:00)
== END 2020-07-07 15:50 | disposition home or self-care (01) | DRG 346 ==
LOC: ER 20:06 → 4 NORTH 21:53
PROVIDERS: ADMIT Family Medicine; ATTEND Family Medicine
PROC: 0D9P0ZZ Drainage of Rectum, Open Approach (ICD-10-PCS; principal; 2020-07-07 11:35)
DX: K61.1 Rectal abscess (principal); K62.89 Other specified diseases of anus and rectum; Z82.49 Family history of ischemic heart disease and other diseases of the circulatory system; F17.210 Nicotine dependence, cigarettes, uncomplicated; Z20.822 Contact with and (suspected) exposure to COVID-19
CPT/HCPCS: 36415; 72193; 80048; 85025; 87071; 87075; 87426; 96361; 96374; 96375; 99285; A4930; A6266; J2405; J2543; J2704; J3010; J7030; Q9967; U0003; U0005; G0378